=== PATIENT | female | born 1990 | race Caucasian/White ===

== ENCOUNTER 2017-01-21 00:18 | Emergency (ER) | payer OTHER ==
--- NOTE | 2017-01-21 04:31 | ED ORDER SUMMARY ---
..... Patient: GARRETT HOLMAN OrderSheet [facility] VisitID: [id number] [place] [address] 26y, F Registration Date/Time: 01/21/2017 ORDER SHEET Weight: 88.4 kg (stated) Allergies: Dilaudid, Ibuprofen GENERAL ORDERS: Wet Prep (Cervix) (CERVIX) Urgent (01:59 01/21/2017 AMcQuoid ER Tech1 verbal order read back to Felix NORMAN) (Ack 2:00 AMcQuoid ER Tech1) (2:05 AMcQuoid ER Tech1) GC/Chlamydia (Cervix) (CERVIX) Urgent (:59 01/21/2017 AMcQuoid ER Tech1 verbal order read back to Felix NORMAN) (Ack 2:00 AMcQuoid ER Tech1) (2:05 AMcQuoid ER Tech1) CBC w Diff Urgent (02:00 01/21/2017 Felix NORMAN) (Ack 2:01 AMcQuoid ER Tech1) (2:46 CBradburn R.N.) CMP Urgent (02:00 01/21/2017 Felix NORMAN) (Ack 2:01 AMcQuoid ER Tech1) (2:46 [address]N.) CT Abd/Pel w Cont (No) (N/A) Urgent (02:00 01/21/2017 Felix NORMAN) (Ack 2:05 AMcQuoid ER Tech1) (2:16 CBradburn R.N.) MEDICATION ORDERS: Rocephin IM 250 mg (NOW) (04:26 01/21/2017 Felix NORMAN) (4:32 CBradburn R.N.) Zithromax PO 1000 mg (NOW) (04:26 01/21/2017 Felix NORMAN) (4:32 Jac R.N.) Flagyl PO 500 mg (NOW) (04:27 01/21/2017 Felix NORMAN) (Ack 4:33 Jac R.N.) (4:37 Jac R.N.) IV FLUIDS: IV Saline Lock (02:00 01/21/2017 Felix NORMAN) (Ack 2:01 HSoule) (2:17 Jac R.N.) Morphine IV 4 mg (HIGH ALERT MEDICATION, NOW) (03:00 01/21/2017 Felix NORMAN) (Cancelled: Other3:08 Felix NORMAN) ORDER SHEET NOTES: [Electronically signed by Lillian Gibbons R.N. (04:45 01/21/2017)] [Electronically signed by Jeanie Arndt MD (17:02 02/02/2017)] [Electronically locked/signed by Lillian Gibbons R.N. (04:45 01/21/2017)]
--- NOTE | 2017-01-21 04:31 | ED ORDER SUMMARY ---
..... Patient: GARRETT HOLMAN OrderSheet [facility] VisitID: [id number] [place] [address] 26y, F Registration Date/Time: 01/21/2017 ORDER SHEET Weight: 88.4 kg (stated) Allergies: Dilaudid, Ibuprofen GENERAL ORDERS: Wet Prep (Cervix) (CERVIX) Urgent (01:59 01/21/2017 AMcQuoid ER Tech1 verbal order read back to Felix NORMAN) (Ack 2:00 AMcQuoid ER Tech1) (2:05 AMcQuoid ER Tech1) GC/Chlamydia (Cervix) (CERVIX) Urgent (:59 01/21/2017 AMcQuoid ER Tech1 verbal order read back to Felix NORMAN) (Ack 2:00 AMcQuoid ER Tech1) (2:05 AMcQuoid ER Tech1) CBC w Diff Urgent (02:00 01/21/2017 Felix NORMAN) (Ack 2:01 AMcQuoid ER Tech1) (2:46 CBradburn R.N.) CMP Urgent (02:00 01/21/2017 Felix NORMAN) (Ack 2:01 AMcQuoid ER Tech1) (2:46 KAYLANradmanny R.N.) CT Abd/Pel w Cont (No) (N/A) Urgent (02:00 01/21/2017 Felix NORMAN) (Ack 2:05 AMcQuoid ER Tech1) (2:16 CBradburn R.N.) MEDICATION ORDERS: Rocephin IM 250 mg (NOW) (04:26 01/21/2017 Felix NORMAN) (4:32 CBradburn R.N.) Zithromax PO 1000 mg (NOW) (04:26 01/21/2017 Felix NORMAN) (4:32 Jac R.N.) Flagyl PO 500 mg (NOW) (04:27 01/21/2017 Felix NORMAN) (Ack 4:33 Jac R.N.) (4:37 Jac R.N.) IV FLUIDS: IV Saline Lock (02:00 01/21/2017 Felix NORMAN) (Ack 2:01 HSoule) (2:17 Jac R.N.) Morphine IV 4 mg (HIGH ALERT MEDICATION, NOW) (03:00 01/21/2017 Felix NORMAN) (Cancelled: Other3:08 Felix NORMAN) ORDER SHEET NOTES: [Electronically signed by Lillian Gibbons R.N. (04:45 01/21/2017)] [Electronically signed by Jeanie Arndt MD (17:02 02/02/2017)] [Electronically locked/signed by Lillian Gibbons R.N. (04:45 01/21/2017)]
--- NOTE | 2017-01-21 04:31 | ED CLINICAL REPORT ---
Clinical Report - Physicians/Mid Levels [facility] [address] [place] [address] 01/21/2017 0:20 Patient: GARRETT HOLMAN Time Seen: 00:39. Arrived- By private vehicle. Historian- patient. HISTORY OF PRESENT ILLNESS Chief Complaint: RECTAL BLEEDING. This started about 1 week ago, has been mild and is still present. The patient has had moderate abdominal pain. The pain is described as located in the lower abdomen. but not had dark stools, rectal pain or hard stools. She has had mild rectal bleeding (Bloody mucus on paper.). No constipation, nausea, vomiting or diarrhea. (Pt also c/o increased vaginal d/c and a different odor. She is not aware of her sexual partner having any sx.). No recent travel. No known contact with a sick individual. Similar symptoms previously: None. Recent medical care: The patient was seen recently at another facility in a clinic. ( Pt was dx with UTI at the urgent care clinic.). REVIEW OF SYSTEMS No dizziness, fainting episodes, weakness, fever or blurred vision. No sore throat, epistaxis, cough, difficulty breathing or chest pain. No hematuria, skin rash, enlarged lymph nodes, chills or joint pain. All systems otherwise negative, except as recorded above. PAST HISTORY Problems: Lifestyle / Substance Problems. MRSA Infection. Additional Surgeries: Left hip surgery. Left knee surgery. Medications: None. Allergies: Dilaudid. Ibuprofen. SOCIAL HISTORY Smoker- current status unknown. History of drug use: heroin, marijuana. ADDITIONAL NOTES The nursing notes have been reviewed. PHYSICAL EXAM Vital Signs: 01/21/2017 00:30 BP: 120/69. HR: 101. RR: 17. O2 saturation: 100%. Temp: 97.8 F. Pain level now: 10/10. Have been reviewed. Appearance: Alert. Oriented X3. No acute distress. Eyes: Pupils equal, round and reactive to light. Eyes normal inspection. ENT: Nose normal. Neck: Normal inspection. Neck supple. CVS: Normal heart rate and rhythm. Heart sounds normal. Pulses normal. Respiratory: No respiratory distress. Breath sounds normal. Abdomen: Soft and nontender. No organomegaly. No mass. Back: Normal inspection. No CVA tenderness. : Mild right adnexal tenderness; left adnexal tenderness; moderate cervical motion tenderness. No uterine tenderness. Rectal: Trace heme-positive stool; hemoccult fuel quality tech check passed. (POC test reference range: negative). Rectal exam nontender. Skin: Skin warm and dry. Normal skin color. No rash. Normal skin turgor. Extremities: Extremities exhibit normal ROM. No lower extremity edema. Neuro: (Grossly intact.). LABS, X-RAYS, AND EKG Abdominal CT: Normal aorta. Normal liver, spleen, pancreas, gallbladder and adrenals. Normal kidneys. Uterus normal. Adnexa normal. Bladder normal. Appendix normal. No mass. No free fluid. No bony lesion. No diverticulitis. Study type: abdomen and pelvis. Abdominal CT performed with IV contrast. The study was independently viewed by me, interpreted by the radiologist and contemporaneously by me and discussed with the radiologist. Prior studies were not available for comparison. Laboratory Tests: CBC w Diff: ([facility]: 01/21/2017 02:40) ( MsgRcvd 01/21/2017 02:54) Final results Test Result Flag Units (Reference) WHITE BLOOD COUNT 8.2 K/uL (4.5-11.5) RED BLOOD COUNT 3.96 L M/uL (4.00-5.20) HEMOGLOBIN 10.2 L gm/dL (12.0-16.0) HEMATOCRIT 30.8 L % (36.0-46.0) MEAN CELL VOLUME 78 L fL (80-100) MEAN CORPUSCULAR HGB 26 pg (26-34) MEAN CORPUSCULAR HGB CONC 33 g/dL (31-37) RED CELL DISTRIBUTION WIDTH 14.7 % (11.6-14.8) PLATELET COUNT 270 K/uL (150-400) NEUTROPHIL % 54.2 % (50-75) LYMPH % 33.6 % (25-40) MONO % 8.1 % (3-14) EOSINOPHIL % 3.9 % (0-4) BASOPHIL % 0.2 % (0-2) CMP: ([facility]: 01/21/2017 02:40) ( MsgRcvd 01/21/2017 03:05) Final results Test Result Flag Units (Reference) GLUCOSE 83 mg/dL (70-110) BUN 13 mg/dL (7-18) CREATININE 0.8 mg/dL (0.6-1.3) Estimated GFR >60 mL/min Estimated GFR- >60 mL/min Note: Persistent reduction over 3 months in eGFR<60 mL/min/1.73 m2 defines CKD. Patients with eGFR values>=60 mL/min/1.73 m2 may also have CKD if evidence ofpersistent proteinuria. Additional information may be foundat www.kidney.org. SODIUM 141 mmol/L (136-145) POTASSIUM 3.5 mmol/L (3.5-5.1) CHLORIDE 104 mmol/L (98-107) CARBON DIOXIDE 29 mmol/L (21-32) CALCIUM 9.0 mg/dL (8.5-10.1) TOTAL PROTEIN 6.9 g/dL (6.4-8.2) ALBUMIN 3.0 L g/dL (3.3-5.0) BILIRUBIN, TOTAL 0.3 mg/dL (0.0-1.0) ALKALINE PHOSPHATASE 89 U/L (46-116) AST (SGOT) 26 U/L (15-37) ALT (SGPT) 34 U/L (12-78) Wet Prep: ([facility]: 01/21/2017 01:40) ( MsgRcvd 01/21/2017 02:09) Final results SPECIMEN DESCRIPTION: CERVIX Test Result Flag Units (Reference) WET MOUNT CLUE CELLS:: FEW * EPITHELIAL CELLS: MANY -- SOURCE?: CERVIX WHITE BLOOD CELLS: MODERATE TRICHOMONAS:: NONE -- YEAST:: NONE . Pulse Oximetry: 01/21/2017 00:30 O2 saturation: 100%. (FIO2 - room air). Interpretation: normal. PROGRESS AND PROCEDURES Course of Care: PT was worked up extensively for her sx, with labs, CT, and UA. Work-up was negative, except for the pt's wet mount. In light of those findings, as well as the pt's CMT, pt was given Rocephin, Zithromax, and Flagyl. Patient counseled in person regarding the patient's stable condition, test results, diagnosis and need for follow-up. Concerns were addressed. Old medical records reviewed. Disposition: Discharged. Condition: stable. CLINICAL IMPRESSION Acute pelvic inflammatory disease. Acute moderate bacterial vaginitis INSTRUCTIONS Drink plenty of fluids. Warnings: GENERAL WARNINGS: Return or contact your physician immediately if your condition worsens or changes unexpectedly, if not improving as expected, or if other problems arise. Prescription Medications: Flagyl 500 mg: Take 1 tablet orally every 12 hours for 7 days. No refill. Substitution is permissible Understanding of the discharge instructions verbalized by patient. Follow-up with: Kelby Lund MD, Obstetrics/Gynecology, , [facility] [place] [address] Follow up. Call for the next available appointment. (Electronically signed by Jeanie Arndt MD 02/02/2017 17:02) Addenda for GARRETT HOLMAN VisitID: [id number] Date: 01/21/2017 01/24/2017 16:37 Phone call placed to patient, notified that she needs to inform any sexual partners that she was positive for gonorrhea, so they need to get tested and treated also. She has been treated. (Electronically signed by Nadia Chan R.N. - 01/24/2017 16:37)
--- NOTE | 2017-01-21 04:31 | ED NURSING NOTES ---
Clinical Report - Nurses Merged With [facility] [address] [place] [place] [address] 01/21/2017 0:20 Patient: GARRETT HOLMAN TRIAGE Triage time 00:Jan 21 2017. Chief Complaint: RECTAL BLEEDING (pt seen at clinic this morning for UTI and bleeding from rectum, pt was told to go to ED for further eval of rectal bleeding). Alert. No acute distress. SEPSIS SCREEN: Sepsis Screen. Negative (no infection suspected/documented). --00:35 Michael Hyman R.N. 00:30 01/21/17. BP: 120/69. HR: 101. RR: 17. O2 saturation: 100%. Temp: 97.8 F. Pain level now: 06/08. --00:35 Michael Hyman R.N. Weight: 88.4 kg stated. Height/Length: 68 inches Per Patient. BMI: 29.6. --00:35 Mihcael Hyman R.N. Medications None. --00:32 Michael Hyman R.N. Medication/allergy information source: the patient. --00:35 Michael Hyman R.N. Allergies Dilaudid. --00:32 Michael Hyman R.N. Ibuprofen. --00:32 Michael Hyman R.N. History Arrived by private vehicle. Historian: patient. Accompanied by family. Onset. (1 weeks ago). She has had diarrhea. 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 PAST MEDICAL HX: Immunizations: up-to-date. Last normal menstrual period- september 2016. Sexual history - sexually active. SOCIAL HX: Heavy tobacco smoker (cigarette)- less than 1 pack per day. History of heavy IV drug use: heroin, marijuana. Recently used drugs just prior to arrival. Under influence in ED. (ivd user). No alcohol use. No infectious disease exposure. No known contact with a sick individual. ABUSE ASSESSMENT: No report of abuse. SELF HARM ASSESSMENT: A self harm assessment was performed. The patient answered "no" to the question "Do you have thoughts of harming or killing yourself?". FALL RISK ASSESSMENT: Fall risk assessment completed. No fall risk identified. NUTRITIONAL RISK ASSESSMENT: The nutritional risk assessment revealed no deficiencies. FUNCTIONAL ASSESSMENT: Functional assessment: no impairments noted. LEARNING NEEDS ASSESSMENT: The learning needs assessment revealed no barriers. SKIN INTEGRITY ASSESSMENT: Skin integrity risk assessment completed. No skin integrity risk identified. --00:35 Michael Hyman R.N. PROBLEMS: Abscess. Lifestyle / Substance Problems. Cellulitis. MRSA Infection. Cysts. Abcesses. --00:32 Michael Hyman R.N. ADDITIONAL SURGERIES: Hip Surgery. Knee Surgery. Laparoscopy. Left hip surgery. Left knee surgery. --00:32 Michael Hyman R.N. Interventions ID and allergy band on patient. --00:35 Michael Hyman R.N. PHYSICAL ASSESSMENT To room via wheelchair. Patient gowned. GENERAL / NEURO / PSYCH: Alert. Oriented X 4. HEENT: Mucous membranes are pink. RESPIRATORY: Respirations not labored. CVS: Capillary refill less than 2 seconds. GI / : Bowel sounds within normal limits. SKIN: Skin is warm and dry. --00:35 Michael Hyman R.N. NURSING PROGRESS NOTES Patient gowned. Head of bed elevated. Reassurance given. Patient identifiers checked. Call light placed in reach. Side rails up. Bed placed in lowest position. Brakes of bed on. Patient ready for evaluation- chart flagged. Patient waiting for evaluation. --00:36 Michael Hyman R.N. 02:05 01/21/2017 One (1) unsuccessful IV access attempt including the right antecubital space. Applied bandage and manual pressure. --02:17 Lillian Gibbons R.N. 02:15 01/21/2017 Site #1 started via IV in the left forearm with an 22g angiocath, with aseptic technique and good blood return; two attempts. Saline lock flushed with 10 mL saline. --02:17 Lillian Gibbons R.N. Patient transported to [place] by stretcher with [employer]. (02:16). --02:18 Lillian Gibbons R.N. 02:55 01/21/17. BP: 113/60. HR: 87 (regular). RR: 18 (regular and unlabored). O2 saturation: 98% on room air. Temp: deferred. Pain level now: 02/06. --02:56 Lillian Gibbons R.N. The patient is calm and resting quietly. Overall patient status is the same- she states feels the same. GI / : The patient reports abdominal pain located in the lower abdomen is still present but improving and currently moderate in severity, constant and described as crampy. Bowel sounds within normal limits. --02:56 Lillian Gibbons R.N. 03:30 01/21/2017 Rocephin (CefTRIAXone Sodium) IM 250 mg given. Given in the left gluteus han. Allergies verified and confirmed 5 rights. --04:32 Lillian Gibbons R.N. 03:30 01/21/2017 Zithromax PO Tablets 1000 mg given. Allergies verified and confirmed 5 rights. --04:33 Lillian iGbbons R.N. 03:55 01/21/2017 Site #1 removed. Catheter intact. Manual pressure and bandage applied. --03:59 Lillian Gibbons R.N. 04:33 01/21/2017 IV Saline Lock Drip IV Discontinued: bag #1. Total amount infused: 1000 mL. IV patency established. IV site checked: no pain, redness, or swelling. IV flushed thoroughly. --04:33 Lillian Gibbons R.N. 04:37 01/21/2017 Flagyl (MetroNIDAZOLE) PO Tablets 500 mg given. Allergies verified and confirmed 5 rights. --04:37 Lillian Gibbons R.N. DISPOSITION / DISCHARGE Departure time: 438. Condition at departure: improved and stable. No learning barriers present. Discharge instructions provided and reviewed with the patient. Reviewed medication(s) side effects, precautions, dosing and course information. Prescription(s) given to the patient. Patient verbalized understanding. Written instructions provided in [place]. The patient was discharged home and accompanied by spouse. She left the Emergency Department ambulatory and via private vehicle. Spouse driving. --04:44 Lillian Gibbons R.N. 04:42 01/21/17. BP: 108/61 taken on the right arm, while lying. HR: 76 (regular and normal rate). RR: 18 (regular and unlabored). O2 saturation: 100% on room air. Temp: deferred. Pain level now: 11/06. --04:44 Lillian Gibbons R.N. Locked/Released at 01/21/2017 4:45 by Lillian Gibbons R.N.
--- NOTE | 2017-01-21 04:31 | ED NURSING NOTES ---
Clinical Report - Nurses [facility] [address] [place] [address] 01/21/2017 0:20 Patient: GARRETT HOLMAN TRIAGE Triage time 00:Jan 21 2017. Chief Complaint: RECTAL BLEEDING (pt seen at clinic this morning for UTI and bleeding from rectum, pt was told to go to ED for further eval of rectal bleeding). Alert. No acute distress. SEPSIS SCREEN: Sepsis Screen. Negative (no infection suspected/documented). --00:35 Michael Hyman R.N. 00:30 01/21/17. BP: 120/69. HR: 101. RR: 17. O2 saturation: 100%. Temp: 97.8 F. Pain level now: 06/08. --00:35 Michael Hyman R.N. Weight: 88.4 kg stated. Height/Length: 68 inches Per Patient. BMI: 29.6. --00:35 Michael Hyman R.N. Medications None. --00:32 Michael Hyman R.N. Medication/allergy information source: the patient. --00:35 Michael Hyman R.N. Allergies Dilaudid. --00:32 Michael Hyman R.N. Ibuprofen. --00:32 Michael Hyman R.N. History Arrived by private vehicle. Historian: patient. Accompanied by family. Onset. (1 weeks ago). She has had diarrhea. 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 PAST MEDICAL HX: Immunizations: up-to-date. Last normal menstrual period- september 2016. Sexual history - sexually active. SOCIAL HX: Heavy tobacco smoker (cigarette)- less than 1 pack per day. History of heavy IV drug use: heroin, marijuana. Recently used drugs just prior to arrival. Under influence in ED. (ivd user). No alcohol use. No infectious disease exposure. No known contact with a sick individual. ABUSE ASSESSMENT: No report of abuse. SELF HARM ASSESSMENT: A self harm assessment was performed. The patient answered "no" to the question "Do you have thoughts of harming or killing yourself?". FALL RISK ASSESSMENT: Fall risk assessment completed. No fall risk identified. NUTRITIONAL RISK ASSESSMENT: The nutritional risk assessment revealed no deficiencies. FUNCTIONAL ASSESSMENT: Functional assessment: no impairments noted. LEARNING NEEDS ASSESSMENT: The learning needs assessment revealed no barriers. SKIN INTEGRITY ASSESSMENT: Skin integrity risk assessment completed. No skin integrity risk identified. --00:35 Michael Hyman R.N. PROBLEMS: Abscess. Lifestyle / Substance Problems. Cellulitis. MRSA Infection. Cysts. Abcesses. --00:32 Michael Hyman R.N. ADDITIONAL SURGERIES: Hip Surgery. Knee Surgery. Laparoscopy. Left hip surgery. Left knee surgery. --00:32 Michael Hyman R.N. Interventions ID and allergy band on patient. --00:35 Michael Hyman R.N. PHYSICAL ASSESSMENT To room via wheelchair. Patient gowned. GENERAL / NEURO / PSYCH: Alert. Oriented X 4. HEENT: Mucous membranes are pink. RESPIRATORY: Respirations not labored. CVS: Capillary refill less than 2 seconds. GI / : Bowel sounds within normal limits. SKIN: Skin is warm and dry. --00:35 Michael Hyman R.N. NURSING PROGRESS NOTES Patient gowned. Head of bed elevated. Reassurance given. Patient identifiers checked. Call light placed in reach. Side rails up. Bed placed in lowest position. Brakes of bed on. Patient ready for evaluation- chart flagged. Patient waiting for evaluation. --00:36 Michael Hyman R.N. 02:05 01/21/2017 One (1) unsuccessful IV access attempt including the right antecubital space. Applied bandage and manual pressure. --02:17 Lillian Gibbons R.N. 02:15 01/21/2017 Site #1 started via IV in the left forearm with an 22g angiocath, with aseptic technique and good blood return; two attempts. Saline lock flushed with 10 mL saline. --02:17 Lillian Gibbons R.N. Patient transported to [place] by stretcher with [employer]. (02:16). --02:18 Lillian Gibbons R.N. 02:55 01/21/17. BP: 113/60. HR: 87 (regular). RR: 18 (regular and unlabored). O2 saturation: 98% on room air. Temp: deferred. Pain level now: 02/06. --02:56 Lillian Gibbons R.N. The patient is calm and resting quietly. Overall patient status is the same- she states feels the same. GI / : The patient reports abdominal pain located in the lower abdomen is still present but improving and currently moderate in severity, constant and described as crampy. Bowel sounds within normal limits. --02:56 Lillian Gibbons R.N. 03:30 01/21/2017 Rocephin (CefTRIAXone Sodium) IM 250 mg given. Given in the left gluteus han. Allergies verified and confirmed 5 rights. --04:32 Lillian Gibbons R.N. 03:30 01/21/2017 Zithromax PO Tablets 1000 mg given. Allergies verified and confirmed 5 rights. --04:33 Lillian Gibbons R.N. 03:55 01/21/2017 Site #1 removed. Catheter intact. Manual pressure and bandage applied. --03:59 Lillian Gibbons R.N. 04:33 01/21/2017 IV Saline Lock Drip IV Discontinued: bag #1. Total amount infused: 1000 mL. IV patency established. IV site checked: no pain, redness, or swelling. IV flushed thoroughly. --04:33 Lillian Gibbons R.N. 04:37 01/21/2017 Flagyl (MetroNIDAZOLE) PO Tablets 500 mg given. Allergies verified and confirmed 5 rights. --04:37 Lillian Gibbons R.N. DISPOSITION / DISCHARGE Departure time: 438. Condition at departure: improved and stable. No learning barriers present. Discharge instructions provided and reviewed with the patient. Reviewed medication(s) side effects, precautions, dosing and course information. Prescription(s) given to the patient. Patient verbalized understanding. Written instructions provided in [place]ian. The patient was discharged home and accompanied by spouse. She left the Emergency Department ambulatory and via private vehicle. Spouse driving. --04:44 Lillian Gibbons R.N. 04:42 01/21/17. BP: 108/61 taken on the right arm, while lying. HR: 76 (regular and normal rate). RR: 18 (regular and unlabored). O2 saturation: 100% on room air. Temp: deferred. Pain level now: 11/06. --04:44 Lillian Gibbons R.N. Locked/Released at 01/21/2017 4:45 by Lillian Gibbons R.N.
--- NOTE | 2017-01-21 04:31 | ED CLINICAL REPORT ---
Clinical Report - Physicians/Mid Levels [facility] [address] [place] [address] 01/21/2017 0:20 Patient: GARRETT HOLMAN Time Seen: 00:39. Arrived- By private vehicle. Historian- patient. HISTORY OF PRESENT ILLNESS Chief Complaint: RECTAL BLEEDING. This started about 1 week ago, has been mild and is still present. The patient has had moderate abdominal pain. The pain is described as located in the lower abdomen. but not had dark stools, rectal pain or hard stools. She has had mild rectal bleeding (Bloody mucus on paper.). No constipation, nausea, vomiting or diarrhea. (Pt also c/o increased vaginal d/c and a different odor. She is not aware of her sexual partner having any sx.). No recent travel. No known contact with a sick individual. Similar symptoms previously: None. Recent medical care: The patient was seen recently at another facility in a clinic. ( Pt was dx with UTI at the urgent care clinic.). REVIEW OF SYSTEMS No dizziness, fainting episodes, weakness, fever or blurred vision. No sore throat, epistaxis, cough, difficulty breathing or chest pain. No hematuria, skin rash, enlarged lymph nodes, chills or joint pain. All systems otherwise negative, except as recorded above. PAST HISTORY Problems: Lifestyle / Substance Problems. MRSA Infection. Additional Surgeries: Left hip surgery. Left knee surgery. Medications: None. Allergies: Dilaudid. Ibuprofen. SOCIAL HISTORY Smoker- current status unknown. History of drug use: heroin, marijuana. ADDITIONAL NOTES The nursing notes have been reviewed. PHYSICAL EXAM Vital Signs: 01/21/2017 00:30 BP: 120/69. HR: 101. RR: 17. O2 saturation: 100%. Temp: 97.8 F. Pain level now: 10/10. Have been reviewed. Appearance: Alert. Oriented X3. No acute distress. Eyes: Pupils equal, round and reactive to light. Eyes normal inspection. ENT: Nose normal. Neck: Normal inspection. Neck supple. CVS: Normal heart rate and rhythm. Heart sounds normal. Pulses normal. Respiratory: No respiratory distress. Breath sounds normal. Abdomen: Soft and nontender. No organomegaly. No mass. Back: Normal inspection. No CVA tenderness. : Mild right adnexal tenderness; left adnexal tenderness; moderate cervical motion tenderness. No uterine tenderness. Rectal: Trace heme-positive stool; hemoccult quality reviewer check passed. (POC test reference range: negative). Rectal exam nontender. Skin: Skin warm and dry. Normal skin color. No rash. Normal skin turgor. Extremities: Extremities exhibit normal ROM. No lower extremity edema. Neuro: (Grossly intact.). LABS, X-RAYS, AND EKG Abdominal CT: Normal aorta. Normal liver, spleen, pancreas, gallbladder and adrenals. Normal kidneys. Uterus normal. Adnexa normal. Bladder normal. Appendix normal. No mass. No free fluid. No bony lesion. No diverticulitis. Study type: abdomen and pelvis. Abdominal CT performed with IV contrast. The study was independently viewed by me, interpreted by the radiologist and contemporaneously by me and discussed with the radiologist. Prior studies were not available for comparison. Laboratory Tests: CBC w Diff: ([facility]: 01/21/2017 02:40) ( MsgRcvd 01/21/2017 02:54) Final results Test Result Flag Units (Reference) WHITE BLOOD COUNT 8.2 K/uL (4.5-11.5) RED BLOOD COUNT 3.96 L M/uL (4.00-5.20) HEMOGLOBIN 10.2 L gm/dL (12.0-16.0) HEMATOCRIT 30.8 L % (36.0-46.0) MEAN CELL VOLUME 78 L fL (80-100) MEAN CORPUSCULAR HGB 26 pg (26-34) MEAN CORPUSCULAR HGB CONC 33 g/dL (31-37) RED CELL DISTRIBUTION WIDTH 14.7 % (11.6-14.8) PLATELET COUNT 270 K/uL (150-400) NEUTROPHIL % 54.2 % (50-75) LYMPH % 33.6 % (25-40) MONO % 8.1 % (3-14) EOSINOPHIL % 3.9 % (0-4) BASOPHIL % 0.2 % (0-2) CMP: ([facility]: 01/21/2017 02:40) ( MsgRcvd 01/21/2017 03:05) Final results Test Result Flag Units (Reference) GLUCOSE 83 mg/dL (70-110) BUN 13 mg/dL (7-18) CREATININE 0.8 mg/dL (0.6-1.3) Estimated GFR >60 mL/min Estimated GFR- >60 mL/min Note: Persistent reduction over 3 months in eGFR<60 mL/min/1.73 m2 defines CKD. Patients with eGFR values>=60 mL/min/1.73 m2 may also have CKD if evidence ofpersistent proteinuria. Additional information may be foundat [email or web address].org. SODIUM 141 mmol/L (136-145) POTASSIUM 3.5 mmol/L (3.5-5.1) CHLORIDE 104 mmol/L (98-107) CARBON DIOXIDE 29 mmol/L (21-32) CALCIUM 9.0 mg/dL (8.5-10.1) TOTAL PROTEIN 6.9 g/dL (6.4-8.2) ALBUMIN 3.0 L g/dL (3.3-5.0) BILIRUBIN, TOTAL 0.3 mg/dL (0.0-1.0) ALKALINE PHOSPHATASE 89 U/L (46-116) AST (SGOT) 26 U/L (15-37) ALT (SGPT) 34 U/L (12-78) Wet Prep: ([facility]: 01/21/2017 01:40) ( MsgRcvd 01/21/2017 02:09) Final results SPECIMEN DESCRIPTION: CERVIX Test Result Flag Units (Reference) WET MOUNT CLUE CELLS:: FEW * EPITHELIAL CELLS: MANY -- SOURCE?: CERVIX WHITE BLOOD CELLS: MODERATE TRICHOMONAS:: NONE -- YEAST:: NONE . Pulse Oximetry: 01/21/2017 00:30 O2 saturation: 100%. (FIO2 - room air). Interpretation: normal. PROGRESS AND PROCEDURES Course of Care: PT was worked up extensively for her sx, with labs, CT, and UA. Work-up was negative, except for the pt's wet mount. In light of those findings, as well as the pt's CMT, pt was given Rocephin, Zithromax, and Flagyl. Patient counseled in person regarding the patient's stable condition, test results, diagnosis and need for follow-up. Concerns were addressed. Old medical records reviewed. Disposition: Discharged. Condition: stable. CLINICAL IMPRESSION Acute pelvic inflammatory disease. Acute moderate bacterial vaginitis INSTRUCTIONS Drink plenty of fluids. Warnings: GENERAL WARNINGS: Return or contact your physician immediately if your condition worsens or changes unexpectedly, if not improving as expected, or if other problems arise. Prescription Medications: Flagyl 500 mg: Take 1 tablet orally every 12 hours for 7 days. No refill. Substitution is permissible Understanding of the discharge instructions verbalized by patient. Follow-up with: Kelby Lund MD, Obstetrics/Gynecology, , [facility]'s [place] [address] Follow up. Call for the next available appointment. (Electronically signed by Jeanie Arndt MD 02/02/2017 17:02) Addenda for GARRETT HOLMAN VisitID: [id number] Date: 01/21/2017 01/24/2017 16:37 Phone call placed to patient, notified that she needs to inform any sexual partners that she was positive for gonorrhea, so they need to get tested and treated also. She has been treated. (Electronically signed by Nadia Chan R.N. - 01/24/2017 16:37)
--- NOTE | 2017-01-21 07:52 | DIAGNOSTIC IMAGING REPORT ---
PROCEDURE: ABDOMEN/PELVIS WITH CONTRAST CLINICAL INDICATION: RECTAL PAIN AND DISCHARGE, PELVIC PAIN TECHNIQUE: 125 ml of Isovue 300 were injected intravenously and axial images were obtained of the abdomen and pelvis with sagittal and coronal reformations. COMPARISON: None. FINDINGS: ABDOMEN: Clear lung bases. Normal sized heart. No hiatal hernia. Spleen is mildly enlarged measuring 14.6 cm in length. Small splenule present superiorly. The liver, gallbladder, adrenal glands, kidneys, and pancreas are normal. The abdominal aorta is normal in its course and caliber. No atherosclerosis. There are no suspicious calcifications, retroperitoneal adenopathy or masses. The stomach, upper bowel loops, and mesentery are normal. Intact anterior abdominal wall. No free fluid or inflammation. PELVIS: Moderately enlarged inguinal lymph nodes bilaterally. Multiple abnormal rounded perirectal, pelvic sidewall, presacral lymph nodes. The appendix and pelvic small bowel loops are normal. Mildly increased amount of stool in the colon and rectum. The uterus, ovaries, urinary bladder, and pelvic vessels are normal. No free fluid, or pelvic mass. Intact osseous structures. IMPRESSION: 1. Nonspecific pelvic adenopathy, including perirectal and presacral soft tissues. This may be reactive secondary to infectious, inflammatory process, or foreign body response. 2. Mild splenomegaly. 3. Preliminary report by Dr. Ata Tamayo of [facility] radiology All CT scans at this facility use dose modulation, iterative reconstruction, and/or weight-based dosing when appropriate to reduce radiation dose to as low as reasonably achievable.
--- NOTE | 2017-02-02 17:02 | ED MAR SUMMARY ---
..... Medication Administration Record [facility] [address] [place] [address] Patient: GARRETT HOLMAN Visit ID: [id number] 26y, F Weight: 88.4 kg Height/Length: 68 in BMI: 29.6 ALLERGIES: Ibuprofen, Dilaudid Given 03:30 01/21/2017 Lillian Gibbons R.N. Medication Administered: ROCEPHIN [IM] (CEFTRIAXONE SODIUM), Dose: 250 mg IM. Medication Ordered: Rocephin IM 250 mg (NOW). Given 03:30 01/21/2017 Lillian Gibbons R.N. Medication Administered: ZITHROMAX [PO], Dose: 1000 mg Tablets PO. Medication Ordered: Zithromax PO 1000 mg (NOW). Given 04:37 01/21/2017 Lillian Gibbons R.N. Medication Administered: FLAGYL [PO] (METRONIDAZOLE), Dose: 500 mg Tablets PO. Medication Ordered: Flagyl PO 500 mg (NOW).
--- NOTE | 2017-02-02 17:02 | ED DISCHARGE INSTRUCTIONS ---
Patient: GARRETT HOLMAN General Instructions [facility] VisitID: [id number] [place] [phone] 26y, F Registration Date/Time: 01/21/2017 Acute pelvic inflammatory disease. Acute moderate bacterial vaginitis INSTRUCTIONS Drink plenty of fluids. Warnings: GENERAL WARNINGS: Return or contact your physician immediately if your condition worsens or changes unexpectedly, if not improving as expected, or if other problems arise. Prescription Medications: Flagyl 500 mg: Take 1 tablet orally every 12 hours for 7 days. No refill. Substitution is permissible Understanding of the discharge instructions verbalized by patient. Follow-up with: Kelby Lund MD, Obstetrics/Gynecology, , [facility]'s [facility], [address] [place] [address] Follow up. Call for the next available appointment. ADDITIONAL INFORMATION Pelvic Inflammatory Disease Pelvic Inflammatory Disease (PID) is an infection of the female organs (uterus, ovary, or Fallopian tubes). This is most often the result of a sexually transmitted disease (STD). Sometimes, PID can be due to an overgrowth of normal bacteria and not caused by an STD. Whatever its cause, PID is a serious problem. It can lead to infertility (inability to become ) unless it is treated promptly. Home Care: Take all of the medicine prescribed, even if you start to feel better before taking all the pills. You may use acetaminophen (Tylenol) or ibuprofen (Motrin, Advil) to control pain, unless another pain medicine was prescribed. [NOTE: If you have chronic liver or kidney disease or ever had a stomach ulcer or GI bleeding, talk with your doctor before using these medicines.] Your sexual partner should contact his own doctor or go to the Public Health Department to be examined. If his test is positive or if he is having symptoms of discharge or burning when passing urine, he should be treated, too. Avoid sexual activity until both you and your partner have finished taking all of the antibiotic medicine, and your doctor has told you that you are cured. Learn about safe sex practices and use these in the future. The safest sex is with a partner who has tested negative and only has sex with you. Condoms offer protection from spreading some sexually transmitted diseases including Gonorrhea, Chlamydia and HIV, but are not a guarantee. Follow Up with your doctor or as advised by our staff. If a culture test was taken, you may call us in three days for the results, or as directed. Another culture test should be taken 4-6 weeks after treatment to be sure the infection has cleared. Follow up with your doctor or the Public Health Department for complete STD screening, including HIV testing. For more information about STD's, contact the National STD Hotline: . Get Prompt Medical Attention if any of the following occur: No improvement after three days of treatment New or increasing lower abdominal pain or back pain Unexpected vaginal bleeding Weakness, dizziness or fainting Repeated vomiting Inability to urinate due to pain Rash or joint pain Painful open sores around the outer vagina Enlarged painful lymph nodes (lumps) in the groin Bacterial Vaginosis You have a bacterial infection of the vagina called bacterial vaginosis (BV). It may also be called gardnerella or non-specific vaginitis. BV occurs when the "bad" bacteria outnumber the "good" bacteria that are normally present in the vagina. Symptoms include foul-smelling vaginal discharge (most noticeable after vaginal intercourse). There may also be burning with urination. The burning is caused as the urine passes over the inflamed outer vaginal area. The cause of bacterial vaginosis is not certain. However, your risk is higher if you recently began a new sexual relationship, or have had many sex partners in the past. Your risk is also higher if you douche often. While bacterial vaginosis most often occurs only in sexually active women, this is not a true sexually transmitted disease. You did not get this from your partner. You cannot give it to your partner. The infection may be related to temporary changes in the pH of vaginal fluids after being exposed to semen. Home Care: Keep the genital area clean and free of discharge. Do this by wearing an absorbent sanitary pad and changing it often. Shower daily. When you shower, clean the outer vaginal area with plain soap and water. Do not douche during treatment unless advised to do so by your doctor. Routine douching after treatment is no longer recommended to clean the vagina. It raises your risk of vaginal infection and pelvic inflammatory disease. Avoid having sex until you have finished all antibiotic medicine and all symptoms have gone away. Wear cotton underwear or cotton-lined panty hose. Dont wear pants that are too tight. Limiting the number of sex partners you have lowers your risk of this and other vaginal infections, STDs, and HIV. Take all medicine as directed until it is gone, even if you are feeling better. If you dont do this, symptoms might return. Follow Up with your doctor if symptoms dont go away after the medicine is finished. Get Prompt Medical Attention if any of the following occur: Fever of 100.4F (38C) or higher, or as directed by your healthcare provider Lower abdominal pain Rash or joint pain Painful sores around the outer vaginal area or on your partners penis You have been given the following additional information: Pelvic Inflammatory Disease Vaginitis, Bacterial (Electronically signed by Jeanie Arndt MD 02/02/2017 17:02)
--- NOTE | 2017-02-02 17:02 | ED MED RECONCILIATION SUMMARY ---
Patient: GARRETT HOLMAN Medication Reconciliation Report [facility] VisitID: [id number] [address] [place] [address] 26y, F Registration Date/Time: 01/21/2017 Weight: 88.4 kg Height/Length: 68 in. BMI: 29.6 ALLERGIES: Dilaudid, Ibuprofen The patient's Home Medications are listed below: NONE. The source(s) of the original Home Medication information: patient The following Medications were given to the patient in the Emergency Department: Rocephin [IM] IM 250 mg, administered: 01/21/2017 3:30:00 AM Zithromax [PO] PO 1000 mg, administered: 01/21/2017 3:30:00 AM Flagyl [PO] PO 500 mg, administered: 01/21/2017 4:37:00 AM The following Medications were prescribed to the patient: Flagyl 500 mg: Take 1 tablet orally every 12 hours for 7 days. No refill. Substitution is permissible -- Jeanie Arndt MD
--- NOTE | 2017-02-02 17:02 | ED MED RECONCILIATION SUMMARY ---
Patient: GARRETT HOLMAN Medication Reconciliation Report [facility] VisitID: [id number] [address] [place] [address] 26y, F Registration Date/Time: 01/21/2017 Weight: 88.4 kg Height/Length: 68 in. BMI: 29.6 ALLERGIES: Dilaudid, Ibuprofen The patient's Home Medications are listed below: NONE. The source(s) of the original Home Medication information: patient The following Medications were given to the patient in the Emergency Department: Rocephin [IM] IM 250 mg, administered: 01/21/2017 3:30:00 AM Zithromax [PO] PO 1000 mg, administered: 01/21/2017 3:30:00 AM Flagyl [PO] PO 500 mg, administered: 01/21/2017 4:37:00 AM The following Medications were prescribed to the patient: Flagyl 500 mg: Take 1 tablet orally every 12 hours for 7 days. No refill. Substitution is permissible -- Jeanie Arndt MD
--- NOTE | 2017-02-02 17:02 | ED MAR SUMMARY ---
..... Medication Administration Record [facility] [address] [place] [address] Patient: GARRETT HOLMAN Visit ID: [id number] 26y, F Weight: 88.4 kg Height/Length: 68 in BMI: 29.6 ALLERGIES: Ibuprofen, Dilaudid Given 03:30 01/21/2017 Lillian Gibbons R.N. Medication Administered: ROCEPHIN [IM] (CEFTRIAXONE SODIUM), Dose: 250 mg IM. Medication Ordered: Rocephin IM 250 mg (NOW). Given 03:30 01/21/2017 Lillian Gibbons R.N. Medication Administered: ZITHROMAX [PO], Dose: 1000 mg Tablets PO. Medication Ordered: Zithromax PO 1000 mg (NOW). Given 04:37 01/21/2017 Lillian Gibbons R.N. Medication Administered: FLAGYL [PO] (METRONIDAZOLE), Dose: 500 mg Tablets PO. Medication Ordered: Flagyl PO 500 mg (NOW).
--- NOTE | 2017-02-02 17:02 | ED DISCHARGE INSTRUCTIONS ---
Patient: GARRETT HOLMAN General Instructions [facility] VisitID: [id number] [place] [phone] 26y, F Registration Date/Time: 01/21/2017 Acute pelvic inflammatory disease. Acute moderate bacterial vaginitis INSTRUCTIONS Drink plenty of fluids. Warnings: GENERAL WARNINGS: Return or contact your physician immediately if your condition worsens or changes unexpectedly, if not improving as expected, or if other problems arise. Prescription Medications: Flagyl 500 mg: Take 1 tablet orally every 12 hours for 7 days. No refill. Substitution is permissible Understanding of the discharge instructions verbalized by patient. Follow-up with: Kelby Lund MD, Obstetrics/Gynecology, , [facility]'s [facility], [address] [place] [address] Follow up. Call for the next available appointment. ADDITIONAL INFORMATION Pelvic Inflammatory Disease Pelvic Inflammatory Disease (PID) is an infection of the female organs (uterus, ovary, or Fallopian tubes). This is most often the result of a sexually transmitted disease (STD). Sometimes, PID can be due to an overgrowth of normal bacteria and not caused by an STD. Whatever its cause, PID is a serious problem. It can lead to infertility (inability to become ) unless it is treated promptly. Home Care: Take all of the medicine prescribed, even if you start to feel better before taking all the pills. You may use acetaminophen (Tylenol) or ibuprofen (Motrin, Advil) to control pain, unless another pain medicine was prescribed. [NOTE: If you have chronic liver or kidney disease or ever had a stomach ulcer or GI bleeding, talk with your doctor before using these medicines.] Your sexual partner should contact his own doctor or go to the Public Health Department to be examined. If his test is positive or if he is having symptoms of discharge or burning when passing urine, he should be treated, too. Avoid sexual activity until both you and your partner have finished taking all of the antibiotic medicine, and your doctor has told you that you are cured. Learn about safe sex practices and use these in the future. The safest sex is with a partner who has tested negative and only has sex with you. Condoms offer protection from spreading some sexually transmitted diseases including Gonorrhea, Chlamydia and HIV, but are not a guarantee. Follow Up with your doctor or as advised by our staff. If a culture test was taken, you may call us in three days for the results, or as directed. Another culture test should be taken 4-6 weeks after treatment to be sure the infection has cleared. Follow up with your doctor or the Public Health Department for complete STD screening, including HIV testing. For more information about STD's, contact the National STD Hotline: . Get Prompt Medical Attention if any of the following occur: No improvement after three days of treatment New or increasing lower abdominal pain or back pain Unexpected vaginal bleeding Weakness, dizziness or fainting Repeated vomiting Inability to urinate due to pain Rash or joint pain Painful open sores around the outer vagina Enlarged painful lymph nodes (lumps) in the groin Bacterial Vaginosis You have a bacterial infection of the vagina called bacterial vaginosis (BV). It may also be called gardnerella or non-specific vaginitis. BV occurs when the "bad" bacteria outnumber the "good" bacteria that are normally present in the vagina. Symptoms include foul-smelling vaginal discharge (most noticeable after vaginal intercourse). There may also be burning with urination. The burning is caused as the urine passes over the inflamed outer vaginal area. The cause of bacterial vaginosis is not certain. However, your risk is higher if you recently began a new sexual relationship, or have had many sex partners in the past. Your risk is also higher if you douche often. While bacterial vaginosis most often occurs only in sexually active women, this is not a true sexually transmitted disease. You did not get this from your partner. You cannot give it to your partner. The infection may be related to temporary changes in the pH of vaginal fluids after being exposed to semen. Home Care: Keep the genital area clean and free of discharge. Do this by wearing an absorbent sanitary pad and changing it often. Shower daily. When you shower, clean the outer vaginal area with plain soap and water. Do not douche during treatment unless advised to do so by your doctor. Routine douching after treatment is no longer recommended to clean the vagina. It raises your risk of vaginal infection and pelvic inflammatory disease. Avoid having sex until you have finished all antibiotic medicine and all symptoms have gone away. Wear cotton underwear or cotton-lined panty hose. Dont wear pants that are too tight. Limiting the number of sex partners you have lowers your risk of this and other vaginal infections, STDs, and HIV. Take all medicine as directed until it is gone, even if you are feeling better. If you dont do this, symptoms might return. Follow Up with your doctor if symptoms dont go away after the medicine is finished. Get Prompt Medical Attention if any of the following occur: Fever of 100.4F (38C) or higher, or as directed by your healthcare provider Lower abdominal pain Rash or joint pain Painful sores around the outer vaginal area or on your partners penis You have been given the following additional information: Pelvic Inflammatory Disease Vaginitis, Bacterial (Electronically signed by Jeanie Arndt MD 02/02/2017 17:02)
== END 2017-01-21 04:39 | disposition home or self-care (01) ==
LOC: ED SRH 00:18
DX: N73.9 Female pelvic inflammatory disease, unspecified (principal); N76.0 Acute vaginitis; Z88.5 Allergy status to narcotic agent; Z88.6 Allergy status to analgesic agent
CPT/HCPCS: 90100; 90195; 91227; 91228; 95059